=== PATIENT | male | born 1995 | race American Indian/Alaskan Native ===

== ENCOUNTER 2016-11-30 15:59 | Inpatient (IN) | payer OTHER ==
[2016-11-30] MEDS ORDERED: ATIVAN IV ONE (16:18)
[2016-11-30 16:51] LABS: Mean Corpuscular HGB Conc 31 % (32-34); Platelet Count 276 K/mm3 (140-440); Red Blood Count 6.45 M/mm3 (3.65-5.03); Red Cell Distribution Width 15.3 % (13.2-15.2); White Blood Count 11.4 K/mm3 (4.5-11.0)
[2016-11-30 16:53] LABS: Hematocrit 43.2 % (35.5-45.6); Hemoglobin 13.4 gm/dl (11.8-15.2); Mean Corpuscular Hemoglobin 21 pg (28-32); Mean Corpuscular Volume 67 fl (84-94)
[2016-11-30 17:10] LABS: Alanine Aminotransferase 12 units/L (7-56); Albumin 4.6 g/dL (3.9-5); Albumin/Globulin Ratio 1.8 %; Alkaline Phosphatase 73 units/L (35-129); Anion Gap 31 mmol/L; Blood Urea Nitrogen 12 mg/dL (9-20); Calcium 9.4 mg/dL (8.4-10.2); Carbon Dioxide 13 mmol/L (22-30); Chloride 100.4 mmol/L (98-107); Glucose 112 mg/dL (75-100); Potassium 4.1 mmol/L (3.6-5.0); Sodium 140 mmol/L (137-145); Total Protein 7.2 g/dL (6.3-8.2)
[2016-11-30] MEDS ORDERED: VIMPAT 200 MG in NACL 0.9% 100 ML IV ONE (17:21)
[2016-11-30] MEDS ORDERED: NACL 0.9% 1000 ML 1,000 ML IV ONE ×2 (17:26→17:55)
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
--- NOTE | 2016-11-30 17:29 | Admit Criteria Form ---
Admission Criteria Documentation: SEIZURE Clinical Indications for Admission to Inpatient Care (Place 'X' for any and all applicable criteria): Admission is indicated for seizure and 1 or more of the following (1)(2)(3)(4)(5 )(6) [X ]I. Inpatient admission required rather than observation care (Also use Seizure: Observation Care Criteria as appropriate) because of 1 or more of the following: [ ]1) Altered mental status that is severe or persistent [ ]2) New focal neurologic deficit that is severe or persistent [ ]3) Metabolic disorder (eg, hypoglycemia, hyponatremia) that is severe or persistent [X ]4) Recurrent seizure [ ]5) Outpatient antiseizure regimen cannot be established (eg , patient cannot tolerate medication, initiation requires inpatient care) [ ]6) Need for ongoing intravenous infusion of anti-seizure medication [ ]7) Cerebral bleeding, hydrocephalus, or vasospasm monitoring [ ]8) Increased intracranial pressure or cerebral edema monitoring [ ]9) Other conditions, treatment or monitoring requiring inpatient admission [ ]II. Status epilepticus [A] or repetitive seizures not controlled with emergent treatment (6)(8) [ ]III. Brain disorder (eg, tumor, edema, and hydrocephalus) that requiring monitoring or intervention available only at inpatient level of care. [ ]IV. Brain insult (eg, severe trauma, stroke, drug toxicity, or withdrawal) that requires monitoring or intervention available only at inpatient level of care (10)(11) [ ]V. Cardiac arrhythmias of immediate concern Extended stay beyond goal length of stay may be needed for (22) [ ]a) Complications of status epilepticus [ ]b) Refractory status epilepticus [ ]c) Etiology-specific therapy for conditions such as [employer] infection, head injury,eclampsia, severe metabolic abnormalities, and brain tumor [ ]d) Residual neurologic damage, [ ]e) Initiation of significant change to anticonvulsant treatment [ ]f) Older patients (65 years or older) [ ]g) Patient requiring intubation (eg, to protect airway) The original [employer] content created by [employer] has been revised. The portions of the content which have been revised are identified through the use of italic text or in bold, and [facility] [employer] has neither reviewed nor approved the modified material. All other unmodified content is copyright [facility]. Please see references footnoted in the original [facility] edition 2017 Admission Criteria Met: Yes
[2016-11-30] MEDS ORDERED: ZONISAMIDE 100 MG PO SCH (20:00)
[2016-11-30 20:14] LABS: Urine Drugs of Abuse Note Disclamer
[2016-11-30 20:27] LABS: Bilirubin,Urine NEG (Negative); Blood,Urine SM (Negative); Ketones,Urine NEG (Negative); Leukocyte Esterase,Urine NEG (Negative); Mucus,Urine FEW /HPF; Nitrite,Urine NEG (Negative); Urobilinogen,Urine < 2.0 mg/dL (<2.0)
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
[2016-12-01] MEDS ORDERED: TYLENOL PO PRN (00:18)
[2016-12-01] MEDS ORDERED: ZOFRAN IV PRN (00:18)
[2016-12-01] MEDS ORDERED: DULCOLAX PR PRN (00:18)
[2016-12-01] MEDS ORDERED: MILK OF MAGNESIA PO PRN (00:18)
[2016-12-01] MEDS ORDERED: DILAUDID IV PRN (00:18)
[2016-12-01] MEDS: D5NS 1,000 ML IV SCH ×2 (00:47→16:31)
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
--- NOTE | 2016-12-01 09:38 | XRay Report ---
SKULL, 2 VIEWS History: MRI foreign body screening Findings: No comparison. A large left craniotomy defect is identified. There are multiple metallic plates and screws securing previous facial fractures including the inferior orbital tapia and lateral left maxillary wall.-material is seen along the left medial orbital wall as well. Impression: There are multiple internally fixated facial fractures with metal plates and screws, left orbital mesh and left craniotomy clips. Recommend confirmation of the material used with the patient history before MRI is performed.
[2016-12-01] MEDS ORDERED: ZONEGRAN (NF) PO SCH (10:00)
[2016-12-01] MEDS ORDERED: VIMPAT 200 MG in NACL 0.9% 100 ML IV SCH (10:00)
[2016-12-01] MEDS: ZONEGRAN (NF) PO SCH ×3 (10:16→10:56)
[2016-12-01] MEDS: PEPCID PO SCH ×2 (10:29→21:13)
[2016-12-01] MEDS ORDERED: NACL 0.9% 250ML 250 ML ONE (11:06)
[2016-12-01] MEDS ORDERED: ATIVAN IV PRN ×2 (16:29→16:38)
--- NOTE | 2016-12-01 16:29 | Progress Note ---
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 Will continue lacosamide and zonisamide Neurology cleared the pt for MRI as he was reported to have one await MRI brain to look for any changes that might have brought on these breakthrough seizures leukocytosis likely stress induced continue to monitor DVT prophylaxis on lovenox Subjective Date of service: 12/01/16 Interval history: pt seen and examined had recurrent seizures lasting about 15 sec today witnessed by the RN EEG was completed earlier pt denied chest pain or SOB, mother at the bedside MRI pending Objective - Constitutional Vitals: Vital Signs - 12hr 12/01/16 07:41 Temperature 97.7 F Pulse Rate 75 Respiratory 18 Rate Blood Pressure 117/73 O2 Sat by Pulse 100 Oximetry General appearance: Present: no acute distress - EENT Eyes: PERRL, EOM intact ENT: hearing intact, clear oral mucosa Ears: bilateral: normal - Neck Neck: supple, normal ROM - Respiratory Respiratory effort: normal Respiratory: bilateral: CTA - Cardiovascular Rhythm: regular Heart Sounds: Present: S1 & S2. Absent: gallop, rub Extremities: pulses intact, No edema, normal color, Full ROM - Gastrointestinal General gastrointestinal: Present: soft, non-tender, non-distended, normal bowel sounds - Integumentary Integumentary: clear, warm, dry - Musculoskeletal Musculoskeletal: 1, strength equal bilaterally - Neurologic Neurologic: moves all extremities - Psychiatric Psychiatric: memory intact, appropriate mood/affect, intact judgment & insight - Labs CBC & Chem 7: 11/30/16 16:28 12/02/16 05:17 - Imaging and cardiology Other: report reviewed (skull xry)
--- NOTE | 2016-12-01 18:16 | Progress Note ---
Subjective Date of service: 12/01/16 Principal diagnosis: breakthrough seizures Interval history: S: more brief seizures today lasting 15 seconds --some babbling and staring and shaking and he was confused; nurses gave ativan and seizures abated O: alert and cooperative; quiet as he usually is; responds well to questions PERRL, EOM full, mild endpoint nystagmus horizontal gait normal I reviewed his EEG. There was an extensive amount of beta activity, most likely related to the ativan that was given last night. His EEG today was performed before he had the seizures. Some left frontal slowing was seen with less beta responsiveness. This goes along with the left frontal encephalomalacia from his trauma It is possible that seizure discharges were suppressed by the ativan as well as by the anticonvulsants. Today's EEG shows improvement over the EEG that I had done in my office. The previous EEG showed left frontal hypersynchronous high voltage sharp activity that was not evident on the current study. the radiologist canceled his mr scan for fear of metal intracranially. He had had a previous mr scan done by Dr. Macias as an outpatient. A recent CT scan done at [facility] did not show any intracranial metal. 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 frontal lobe seizures are frequently very difficult to control P: continue lacosamide but switch to po dose continue zonisamide ambulate prn await mr scan cranium to look for any changes that might have brought on these breakthrough seizures Objective - Vital Sign Vital Signs - 12hr 12/01/16 07:41 Temperature 97.7 F Pulse Rate 75 Respiratory 18 Rate Blood Pressure 117/73 O2 Sat by Pulse 100 Oximetry - Laboratory Findings CBC and BMP: 11/30/16 16:28 11/30/16 16:28
[2016-12-01] MEDS: VIMPAT 200 MG in NACL 0.9% 100 ML IV SCH (21:12)
[2016-12-02 06:50] LABS: BUN/Creatinine Ratio 8.88; Blood Urea Nitrogen 8 mg/dL (9-20); Calcium 9.2 mg/dL (8.4-10.2); Carbon Dioxide 21 mmol/L (22-30); Chloride 109.6 mmol/L (98-107); Glucose 88 mg/dL (75-100); Potassium 3.6 mmol/L (3.6-5.0); Sodium 145 mmol/L (137-145)
[2016-12-02 06:53] LABS: Anion Gap 18 mmol/L
[2016-12-02] MEDS: ZONEGRAN (NF) PO SCH (09:13)
[2016-12-02] MEDS: PEPCID PO SCH (09:13)
[2016-12-02] MEDS: VIMPAT 200 MG in NACL 0.9% 100 ML IV SCH (10:02)
--- NOTE | 2016-12-02 14:52 | Magnetic Resonance Report ---
MR scan of the cranium was performed with and without contrast. Pulse sequences included: 1. T1 weighted sagittal and axial images without contrast and T1 axial and coronal images with contrast 2. T2 weighted axial and coronal images 3. FLAIR axial images 4. Diffusion-weighted axial images 5. Apparent diffusion coefficient images Views of the posterior fossa showed a normal craniocervical junction. Cerebellar pontine angles were normal with normal seventh-eighth nerve complexes. Brainstem and cerebellum were normal. The ventricular system showed no dilatation or distortion. Images of the hemispheres showed an area of encephalomalacia in the left frontal region from the orbital floor anteriorly. This area did not enhance with contrast. Sinuses, pituitary, flow voids in the [place], orbits, and basal ganglia were normal. There are no abnormal areas of enhancement with contrast. Impression: Abnormal MR scan of the cranium with and without contrast area of encephalomalacia in the left frontal, orbital region This study was unchanged from a previous study by Dr. Macias.
--- NOTE | 2016-12-02 15:33 | Progress Note ---
Subjective Date of service: 12/02/16 Principal diagnosis: breakthrough seizures Interval history: S: no seizures O: stable, no problems I reviewed his mr scan. It shows left frontal encehalomalacia that was not changed since a previous mr over 1 year ago. A: frontal lobe seizures with breakthrough P: discharge meds: continue zonisamide 100mg iii/day -- he has rx already Vimpat 200 mg bid -- I have given him the prescription RTC on Monday. Objective - Vital Sign Vital Signs - 12hr 12/02/16 12/02/16 08:30 10:00 Temperature 98.4 F Pulse Rate 73 Respiratory 14 Rate Respiratory 18 Rate [no pain] Blood Pressure 114/65 O2 Sat by Pulse 100 Oximetry - Laboratory Findings CBC and BMP: 11/30/16 16:28 12/02/16 05:17 Abnormal Lab Findings: Abnormal Labs 12/02/16 05:17 Chloride 109.6 H Carbon Dioxide 21 L D BUN 8 L
--- NOTE | 2016-12-02 15:48 | Discharge Summary ---
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 placed on IV lacosamide and zonisamide Neurology cleared the pt for MRI as he was reported to have one await MRI brain to look for any changes that might have brought on these breakthrough seizures d/c meds continue zonisamide 100mg iii/day Vimpat 200 mg bid leukocytosis likely stress induced continue to monitor DVT prophylaxis on lovenox Disposition: DC-01 TO HOME OR SELFCARE Time spent for discharge: 32 minutes Core Measure Documentation - Palliative Care Palliative Care/ Comfort Measures: Not Applicable - Core Measures Any of the following diagnoses?: none Exam - Constitutional Vitals: Temp Pulse Resp BP Pulse Ox 98.4 F 73 18 114/65 100 12/02/16 08:30 12/02/16 08:30 12/02/16 10:00 12/02/16 08:30 12/02/16 08:30 General appearance: Present: no acute distress, well-nourished - EENT Eyes: Present: PERRL ENT: hearing intact, clear oral mucosa - Neck Neck: Present: supple, normal ROM - Respiratory Respiratory effort: normal Respiratory: bilateral: CTA - Cardiovascular Heart Sounds: Present: S1 & S2. Absent: rub, click - Extremities Extremities: pulses symmetrical, No edema Peripheral Pulses: within normal limits - Abdominal General gastrointestinal: Present: soft, non-tender, non-distended, normal bowel sounds Male genitourinary: Present: normal - Integumentary Integumentary: Present: clear, warm, dry - Musculoskeletal Musculoskeletal: gait normal, strength equal bilaterally - Psychiatric Psychiatric: appropriate mood/affect, intact judgment & insight - Neurologic Neurologic: CNII-XII intact, moves all extremities Plan Activity: advance as tolerated, no driving until cleared by PCP Weight Bearing Status: Weight Bear as Tolerated Diet: regular Follow up with: PRIMARY CARE, [Primary Care Provider] - 3-5 Days Prescriptions: Lacosamide [Vimpat] 200 mg PO BID 30 Days
[2016-12-02 16:16] VITALS: BP 115/62
== END 2016-12-02 16:30 | disposition home or self-care (01) | DRG 101 ==
LOC: EDBD 15:59 → ED 15:59 → 3A 23:27
PROVIDERS: ADMIT Internal Medicine; ATTEND Internal Medicine
DX: G40.909 Epilepsy, unspecified, not intractable, without status epilepticus (principal); D72.829 Elevated white blood cell count, unspecified; Z82.49 Family history of ischemic heart disease and other diseases of the circulatory system; Z87.828 Personal history of other (healed) physical injury and trauma; G93.89 Other specified disorders of brain
CPT/HCPCS: 36415; 70250; 70553; 80048; 80053; 80307; 81001; 85027; 95819; 96361; 96365; 96375; 99285; A9577; C9254; J2060; J7030; J7042; J7050